=== PATIENT | female | born 1985 | race Caucasian/White ===

== ENCOUNTER 2018-06-27 07:17 | Emergency (ER) | payer BC, SELFPAY ==
[2018-06-27 08:07] LABS: Bilirubin Negative (Negative); Blood, Urine Moderate (Negative); Clarity CLOUDY (Clear); Glucose, Urine (Dipstick) Negative (Negative); Leukocyte Large (Negative); Nitrite Positive (Negative); Protein, Urine (Dipstick) 30 mg/dL (Neg-Trace); Specific Gravity, Urine 1.013 (1.002-1.036)
[2018-06-27] MEDS ORDERED: Ondansetron PF 4 MG/2 ML Vial ONE (08:10)
[2018-06-27 08:14] LABS: Bacteria/HPF 4+ HPF (None Seen); Hyaline Casts/LPF 0-3 HYALINE CAST LPF (0-3 Hyaline); Pathc Cast-AUWi Flag 0.58 (0-2.49); Squamous Epithelial 0-3 HPF (0-3)
[2018-06-27 08:23] LABS: Yeast-AUWi Flag 172.5 (0-25.0)
[2018-06-27 08:33] LABS: #Eosinphils 0.4 thou/uL (0.0-0.7); #Lymphocytes 2.2 thou/uL (1.20-3.40); #Monocytes 0.7 thou/uL (0.11-0.59); %Basophils 0.3 % (0.0-1.0); %Lymphocytes 16.3 % (21.0-51.0); %Monocytes 5.6 % (0.0-10.0); %Neutrophils 74.8 % (42.0-75.0); Hemoglobin 9.8 g/dL (12.0-16.0); Mean Corpuscular HGB CONC 31.3 g/dL (32.0-36.0); Mean Corpuscular Hemoglobin 23.5 pg (27.0-31.0); Mean Platelet Volume 7.8 fL (7.4-10.4); Platelet Count 498 thou/uL (130-400); RBC Distribution Width 13.8 % (11.5-14.5); Red Blood Cell (RBC) Count 4.16 mill/uL (4.20-5.40); White Blood Cell (WBC) Count 13.3 thou/uL (4.8-10.8)
[2018-06-27 08:39] LABS: Yeast-All Forms Rare HPF (None Seen)
[2018-06-27 08:40] LABS: BHCG - Serum Negative (NEGATIVE); Pregs Control Background? CLEAR/WHITE (CLR/WHITE); Pregs Control Bar Appear? YES (CONTROL BAR)
[2018-06-27 08:53] LABS: ALT (SGPT) 15 U/L (8-55); AST (SGOT) 16 U/L (5-34); Albumin 3.9 g/dL (3.5-5.0); Alkaline Phosphatase 80 U/L (40-150); Anion Gap 14 mmol/L (10-20); BUN (Urea Nitrogen) 11 mg/dL (7.0-18.7); Bilirubin, Total 0.2 mg/dL (0.2-1.2); Calc. Creatinine Clearance 0 mL/min (70-130); Calcium 9.2 mg/dL (7.8-10.44); Carbon Dioxide 22 mmol/L (22-29); Chloride 105 mmol/L (98-107); Estimated GFR-MDRD Greater than 90; Globulin 3.6 g/dL (2.4-3.5); Glucose 154 mg/dL (70-105); Lipase 32 U/L (8-78); Potassium 3.8 mmol/L (3.5-5.1); Protein, Total 7.5 g/dL (6.0-8.3); Sodium 137 mmol/L (136-145)
[2018-06-27 08:55] LABS: Hypochromia SLIGHT = 6-15 cells (100X) (0-5/hpf); MDiff Complete? YES; Microcytosis SLIGHT = 6-15 cells (100X) (0-5/hpf); Polychromasia SLIGHT = 2-3 cells (100X) (0-2/hpf)
[2018-06-27] MEDS ORDERED: Levofloxacin 500 mg/D5W 100 ml Premix Bag ONE (09:34)
== END 2018-06-27 11:22 | disposition home or self-care (01) ==
LOC: ERS 07:17
DX: N39.0 Urinary tract infection, site not specified (principal); D72.829 Elevated white blood cell count, unspecified; E03.9 Hypothyroidism, unspecified; D50.9 Iron deficiency anemia, unspecified; I10 Essential (primary) hypertension; J45.909 Unspecified asthma, uncomplicated; F17.210 Nicotine dependence, cigarettes, uncomplicated; Z79.899 Other long term (current) drug therapy; Z79.84 Long term (current) use of oral hypoglycemic drugs
CPT/HCPCS: 36415; 80053; 81003; 81015; 83605; 83690; 84484; 84703; 85025; 87077; 87086; 87186; 93005; 94760; 96361; 96365; 96366; 96375; J1956; J2405

== ENCOUNTER 2021-10-02 00:08 | Inpatient (IN) | payer SELFPAY ==
[2021-10-02 00:56] LABS: ALT (SGPT) 22 U/L (8-55); AST (SGOT) 21 U/L (5-34); Alkaline Phosphatase 74 U/L (40-110); Anion Gap 16 mmol/L (10-20); BUN (Urea Nitrogen) 14 mg/dL (7.0-18.7); Bilirubin, Total 0.6 mg/dL (0.2-1.2); Calc. Creatinine Clearance 0 mL/min (70-130); Calcium 9.1 mg/dL (7.8-10.44); Carbon Dioxide 22 mmol/L (22-29); Chloride 105 mmol/L (98-107); Globulin 2.9 g/dL (2.4-3.5); Glucose 134 mg/dL (70-105); Potassium 4.4 mmol/L (3.5-5.1); Protein, Total 6.9 g/dL (6.0-8.3); Sodium 139 mmol/L (136-145)
[2021-10-02 00:57] LABS: #Basophils 0.1 thou/uL (0.0-0.2); #Eosinphils 0.3 thou/uL (0.0-0.7); #Lymphocytes 2.3 thou/uL (1.20-3.40); #Monocytes 0.7 thou/uL (0.11-0.59); #Neutrophils 9.5 thou/uL (1.40-6.50); %Basophils 0.5 % (0.0-1.0); %Lymphocytes 17.7 % (21.0-51.0); %Monocytes 5.7 % (0.0-10.0); %Neutrophils 74.2 % (42.0-75.0); Hemoglobin 12.9 g/dL (12.0-16.0); Mean Corpuscular HGB CONC 32.8 g/dL (32.0-36.0); Mean Corpuscular Hemoglobin 30.9 pg (27.0-31.0); Mean Corpuscular Volume 94.2 fL (78.0-98.0); Mean Platelet Volume 7.7 fL (7.4-10.4); Platelet Count 403 thou/uL (130-400); RBC Distribution Width 12.5 % (11.5-14.5); Red Blood Cell (RBC) Count 4.17 mill/uL (4.20-5.40); White Blood Cell (WBC) Count 12.8 thou/uL (4.8-10.8)
[2021-10-02] MEDS ORDERED: Furosemide 40 MG/4 ML VIAL ONE (01:18)
[2021-10-02 01:19] LABS: CKMB 1.2 ng/mL (0-6.6)
[2021-10-02 02:47] LABS: Magnesium 2.1 mg/dL (1.6-2.6)
[2021-10-02 03:09] LABS: SARS-CoV-2 NAA Rapid Test Not Detected (NotDetected)
[2021-10-02] MEDS ORDERED: Ondansetron PF 4 MG/2 ML Vial IVP PRN (03:14)
[2021-10-02 04:03] VITALS: BMI 41.0
[2021-10-02 04:17] LABS: #Basophils 0.1 thou/uL (0.0-0.2); #Eosinphils 0.2 thou/uL (0.0-0.7); #Monocytes 0.7 thou/uL (0.11-0.59); #Neutrophils 9.4 thou/uL (1.40-6.50); %Basophils 0.4 % (0.0-1.0); %Eosinophils 1.2 % (0.0-10.0); %Lymphocytes 22.4 % (21.0-51.0); %Monocytes 5.5 % (0.0-10.0); %Neutrophils 70.4 % (42.0-75.0); Hemoglobin 13.2 g/dL (12.0-16.0); Mean Corpuscular HGB CONC 33.2 g/dL (32.0-36.0); Mean Corpuscular Hemoglobin 31.3 pg (27.0-31.0); Mean Corpuscular Volume 94.2 fL (78.0-98.0); Mean Platelet Volume 7.7 fL (7.4-10.4); Platelet Count 430 thou/uL (130-400); RBC Distribution Width 12.5 % (11.5-14.5); Red Blood Cell (RBC) Count 4.23 mill/uL (4.20-5.40); White Blood Cell (WBC) Count 13.3 thou/uL (4.8-10.8)
[2021-10-02 04:39] LABS: Troponin I 0.027 ng/mL (< 0.028)
[2021-10-02 04:40] LABS: Anion Gap 16 mmol/L (10-20); BUN (Urea Nitrogen) 12 mg/dL (7.0-18.7); Calc. Creatinine Clearance 200 mL/min (70-130); Calcium 9.3 mg/dL (7.8-10.44); Carbon Dioxide 25 mmol/L (22-29); Chloride 102 mmol/L (98-107); Glucose 118 mg/dL (70-105); Magnesium 2.1 mg/dL (1.6-2.6); Sodium 139 mmol/L (136-145)
[2021-10-02 04:55] LABS: Hemoglobin A1c 6.2 % (4.0-6.0)
[2021-10-02] MEDS: Acetaminophen 325 MG TAB PO PRN ×3 (06:02→21:12)
[2021-10-02 07:16] LABS: Troponin I 0.031 ng/mL (< 0.028)
[2021-10-02] MEDS: Lisinopril 5 MG TAB PO SCH (09:28)
[2021-10-02] MEDS: Enoxaparin Sodium 40 MG/0.4 ML SYRINGE SC SCH (09:29)
[2021-10-02] MEDS: Furosemide 40 MG/4 ML VIAL SLOW IVP SCH (13:38)
[2021-10-02] MEDS: Carvedilol 3.125 MG TAB PO SCH (21:12)
[2021-10-03 04:18] LABS: #Basophils 0.1 thou/uL (0.0-0.2); #Eosinphils 0.6 thou/uL (0.0-0.7); #Lymphocytes 3.2 thou/uL (1.20-3.40); #Monocytes 0.7 thou/uL (0.11-0.59); #Neutrophils 4.8 thou/uL (1.40-6.50); %Basophils 0.6 % (0.0-1.0); %Eosinophils 6.2 % (0.0-10.0); %Lymphocytes 34.4 % (21.0-51.0); %Monocytes 7.5 % (0.0-10.0); %Neutrophils 51.3 % (42.0-75.0); Hemoglobin 14.1 g/dL (12.0-16.0); Mean Corpuscular HGB CONC 33.3 g/dL (32.0-36.0); Mean Corpuscular Hemoglobin 31.8 pg (27.0-31.0); Mean Corpuscular Volume 95.5 fL (78.0-98.0); Mean Platelet Volume 7.7 fL (7.4-10.4); Platelet Count 385 thou/uL (130-400); RBC Distribution Width 12.7 % (11.5-14.5); Red Blood Cell (RBC) Count 4.44 mill/uL (4.20-5.40); White Blood Cell (WBC) Count 9.4 thou/uL (4.8-10.8)
[2021-10-03 04:39] LABS: Anion Gap 16 mmol/L (10-20); BUN (Urea Nitrogen) 13 mg/dL (7.0-18.7); Calc. Creatinine Clearance 203 mL/min (70-130); Carbon Dioxide 27 mmol/L (22-29); Chloride 99 mmol/L (98-107); Glucose 102 mg/dL (70-105); Magnesium 2.5 mg/dL (1.6-2.6); Potassium 3.8 mmol/L (3.5-5.1); Sodium 138 mmol/L (136-145)
[2021-10-03] MEDS: Furosemide 40 MG/4 ML VIAL SLOW IVP SCH ×2 (05:52→13:53)
[2021-10-03] MEDS ORDERED: Spironolactone 25 MG TAB PO SCH (08:00)
[2021-10-03] MEDS: Carvedilol 3.125 MG TAB PO SCH ×2 (09:18→20:20)
[2021-10-03] MEDS: Enoxaparin Sodium 40 MG/0.4 ML SYRINGE SC SCH (09:19)
[2021-10-03] MEDS: Lisinopril 5 MG TAB PO SCH (09:19)
[2021-10-03] MEDS ORDERED: Doxycycline 100 MG CAP PO SCH (12:30)
[2021-10-03 13:21] LABS: BHCG - Serum Negative (NEGATIVE); Pregs Control Background? CLEAR/WHITE (CLR/WHITE); Pregs Control Bar Appear? YES (CONTROL BAR)
[2021-10-03 13:51] LABS: Free T4 (Free Thyroxine) 0.87 ng/dL (0.70-1.48)
[2021-10-03] MEDS: Fluticasone Propionate Nasal Spray 16 gm Bottle NASAL SCH (13:53)
[2021-10-03] MEDS: Acetaminophen 325 MG TAB PO PRN (16:40)
[2021-10-03] MEDS: Mometasone 200 MCG/Formoterol 5 MCG 120 PUFF INHALER INH SCH (18:16)
[2021-10-03] MEDS: Doxycycline 100 MG CAP PO SCH (20:20)
[2021-10-04 04:47] LABS: Anion Gap 16 mmol/L (10-20); BUN (Urea Nitrogen) 10 mg/dL (7.0-18.7); Calc. Creatinine Clearance 209 mL/min (70-130); Calcium 9.4 mg/dL (7.8-10.44); Carbon Dioxide 28 mmol/L (22-29); Chloride 98 mmol/L (98-107); Glucose 95 mg/dL (70-105); Magnesium 2.5 mg/dL (1.6-2.6); Sodium 138 mmol/L (136-145)
[2021-10-04] MEDS: Levothyroxine Sodium 88 MCG TAB PO SCH (05:02)
[2021-10-04] MEDS: Furosemide 40 MG/4 ML VIAL SLOW IVP SCH (05:02)
[2021-10-04] MEDS ORDERED: Levothyroxine Sodium 75 MCG TAB PO SCH (06:00)
[2021-10-04] MEDS: Mometasone 200 MCG/Formoterol 5 MCG 120 PUFF INHALER INH SCH ×2 (06:41→18:49)
[2021-10-04] MEDS: Doxycycline 100 MG CAP PO SCH ×2 (08:57→21:52)
[2021-10-04] MEDS: Spironolactone 25 MG TAB PO SCH (08:58)
[2021-10-04] MEDS: Fluticasone Propionate Nasal Spray 16 gm Bottle NASAL SCH (08:58)
[2021-10-04] MEDS: Empagliflozin 10 MG TAB PO SCH (08:58)
[2021-10-04] MEDS: Enoxaparin Sodium 40 MG/0.4 ML SYRINGE SC SCH (08:58)
[2021-10-04] MEDS: Carvedilol 3.125 MG TAB PO SCH (08:58)
[2021-10-04] MEDS ORDERED: Senokot S 8.6-50 MG TAB PO SCH (10:15)
[2021-10-04] MEDS ORDERED: Sodium Chloride 0.9% 250 ML 250 ML IVPB SCH (15:45)
[2021-10-04] MEDS: Acetaminophen 325 MG TAB PO PRN (15:46)
[2021-10-04] MEDS: Senokot S 8.6-50 MG TAB PO SCH (21:52)
[2021-10-05] MEDS: Levothyroxine Sodium 88 MCG TAB PO SCH (05:53)
[2021-10-05] MEDS: Mometasone 200 MCG/Formoterol 5 MCG 120 PUFF INHALER INH SCH ×2 (07:00→18:18)
[2021-10-05] MEDS ORDERED: Furosemide 20 MG TAB PO SCH (09:00)
[2021-10-05] MEDS: Doxycycline 100 MG CAP PO SCH (10:12)
[2021-10-05] MEDS: Spironolactone 25 MG TAB PO SCH (10:12)
[2021-10-05] MEDS: Senokot S 8.6-50 MG TAB PO SCH (10:14)
[2021-10-05] MEDS: Empagliflozin 10 MG TAB PO SCH (10:14)
[2021-10-05] MEDS: Enoxaparin Sodium 40 MG/0.4 ML SYRINGE SC SCH (10:15)
[2021-10-05 11:57] VITALS: BP 115/64; TEMP 97.5
[2021-10-05] MEDS: Fluticasone Propionate Nasal Spray 16 gm Bottle NASAL SCH (15:51)
== END 2021-10-05 18:43 | disposition home or self-care (01) | DRG 291 ==
LOC: ERS 00:08 → 2NO 02:07
PROVIDERS: ADMIT Emergency Medicine; ATTEND Emergency Medicine
DX: I11.0 Hypertensive heart disease with heart failure (principal); I50.43 Acute on chronic combined systolic (congestive) and diastolic (congestive) heart failure; J96.01 Acute respiratory failure with hypoxia; I47.2 Ventricular tachycardia; Z20.822 Contact with and (suspected) exposure to COVID-19; E11.9 Type 2 diabetes mellitus without complications; E03.9 Hypothyroidism, unspecified; I08.1 Rheumatic disorders of both mitral and tricuspid valves; I42.8 Other cardiomyopathies; Z95.810 Presence of automatic (implantable) cardiac defibrillator; Z87.891 Personal history of nicotine dependence; Z28.311 Partially vaccinated for COVID-19; Z88.1 Allergy status to other antibiotic agents; Z79.84 Long term (current) use of oral hypoglycemic drugs; Z79.890 Hormone replacement therapy; Z79.899 Other long term (current) drug therapy
CPT/HCPCS: 36415; 71045; 80048; 80053; 82553; 83036; 83735; 83880; 84439; 84443; 84481; 84484; 84703; 85025; 93005; 93306; 94760; 96374; J1650; J1940; J7050